=== PATIENT | male | born 1960 | race African-American/Black ===

== ENCOUNTER 2021-04-24 12:43 | Emergency (ER) | payer OTHER ==
[2021-04-24 13:33] VITALS: BP 150/94; PULSE 87; TEMP 98.2; BMI 47.2
[2021-04-24 15:52] LABS: BASO % 0.8 % (0-2.0); EOS % 2.3 % (0-4.5); HEMATOCRIT 41.2 % (35.4-49); HEMOGLOBIN 13.6 GM/dL (11.7-16.9); LYMPH % 32.2 % (8-40); MCH 27.9 pg (25.7-33.7); MEAN CELL VOLUME 84.4 fl (80-96); MEAN PLT VOLUME 8.6 fl (7.5-11.1); NEUT % 55.7 % (42.8-82.8); PLATELET COUNT 193 10^3/uL (134-434); RBC 4.88 M/mm3 (4.00-5.60); RDW 15.5 % (11.9-15.9); WHITE BLOOD COUNT 5.3 K/mm3 (4.0-10.0)
[2021-04-24 16:01] LABS: CHLORIDE 108 mmol/L (98-107); SODIUM 143 mmol/L (136-145)
[2021-04-24 16:03] LABS: CALCIUM 8.9 mg/dL (8.5-10.1)
[2021-04-24 16:04] LABS: ALBUMIN 3.6 g/dl (3.4-5.0); ANION GAP 6 MMOL/L (8-16); CO2 29 mmol/L (21-32); GLUCOSE,RANDOM 121 mg/dL (74-106)
[2021-04-24 16:07] LABS: CREATININE 0.8 mg/dL (0.55-1.3); SGOT/AST 15 U/L (15-37); SGPT/ALT 24 U/L (13-61)
[2021-04-24 16:08] LABS: BILIRUBIN,TOTAL 0.4 mg/dL (0.2-1)
[2021-04-24 16:10] LABS: ALK PHOS 71 U/L (45-117)
== END 2021-04-24 18:04 | disposition home or self-care (01) ==
LOC: JER 12:43
DX: R10.9 Unspecified abdominal pain (principal)
CPT/HCPCS: 36415; 71046-TC-FY; 74176-TC; 80053; 82550; 82962; 84484; 85025; 93005; 93010; 99285-25

== ENCOUNTER 2021-06-06 12:29 | Emergency (ER) | payer OTHER ==
[2021-06-06 12:56] VITALS: BP 139/93; PULSE 86; TEMP 97; BMI 47.0
== END 2021-06-06 15:11 | disposition home or self-care (01) ==
LOC: JERFT 12:29
DX: M79.601 Pain in right arm (principal); H11.31 Conjunctival hemorrhage, right eye
CPT/HCPCS: 93971; 99284-25

== ENCOUNTER 2021-07-06 09:47 | Inpatient (IN) | payer OTHER ==
[2021-07-06] MEDS ORDERED: ACETAMINOPHEN 500 MG TABLET (FP) PO ONE (10:41)
[2021-07-06] MEDS ORDERED: ACETAMINOPHEN 325 MG TABLET (FP) ONE (10:47)
[2021-07-06 11:17] LABS: BASO % 0.9 % (0-2.0); EOS % 3.8 % (0-4.5); HEMOGLOBIN 14.2 GM/dL (11.7-16.9); LYMPH % 33.2 % (8-40); MCH 27.8 pg (25.7-33.7); MEAN CELL VOLUME 84.3 fl (80-96); MEAN PLT VOLUME 8.6 fl (7.5-11.1); MONO % 9.3 % (3.8-10.2); NEUT % 52.8 % (42.8-82.8); PLATELET COUNT 208 10^3/uL (134-434); RBC 5.11 M/mm3 (4.00-5.60); WHITE BLOOD COUNT 5.5 K/mm3 (4.0-10.0)
[2021-07-06 11:36] LABS: CALCIUM 9.5 mg/dL (8.5-10.1)
[2021-07-06 11:37] LABS: ALBUMIN 3.7 g/dl (3.4-5.0); BLOOD UREA NITROGEN 18.9 mg/dL (7-18)
[2021-07-06 11:42] LABS: BILIRUBIN,TOTAL 0.3 mg/dL (0.2-1); TOT PROT 7.1 g/dl (6.4-8.2)
[2021-07-06] MEDS ORDERED: VANCOMYCIN 1 GM in D5W (PRE-DOCKED) 1,000 MG/250 ML IVPB ONE (12:35)
[2021-07-06] MEDS ORDERED: VANCOMYCIN 1 GRAM (PRE-DOCKED) 1,000 MG/250 ML BAG IVPB ONE (12:58)
[2021-07-06 14:08] LABS: URIC ACID 5.1 mg/dL (2.6-7.2)
[2021-07-06 15:38] VITALS: BMI 42.9
[2021-07-06] MEDS ORDERED: ALBUTEROL SO4 HFA INHALER IH PRN (17:25)
[2021-07-06] MEDS ORDERED: ACETAMINOPHEN 325 MG TABLET (FP) PO PRN (17:25)
[2021-07-06] MEDS ORDERED: CEFAZOLIN 1 GM in DEXTROSE 5%-WATER - 50 ML IVPB SCH (18:00)
[2021-07-06] MEDS ORDERED: DEXTROSE 5%-WATER - 50 ML IVPB ONE (18:22)
[2021-07-06] MEDS ORDERED: ceFAZolin SODIUM 1 GM VIAL ONE (18:22)
[2021-07-06] MEDS: CEFAZOLIN 1 GM in DEXTROSE 5%-WATER - 50 ML IVPB SCH (19:53)
[2021-07-06] MEDS: HEPARIN NA (PORCINE) 5,000 UNITS/ML 1ML VIAL SQ SCH (22:25)
[2021-07-06] MEDS: INSULIN (NOVOLOG) ASPART 100 UNITS/ML 10ML VIAL SQ SCH (22:26)
[2021-07-07] MEDS ORDERED: ceFAZolin SODIUM 1 GM VIAL ONE ×2 (00:46→08:41)
[2021-07-07] MEDS ORDERED: DEXTROSE 5%-WATER - 50 ML IVPB ONE ×2 (00:46→08:42)
[2021-07-07] MEDS: CEFAZOLIN 1 GM in DEXTROSE 5%-WATER - 50 ML IVPB SCH ×2 (01:05→10:31)
[2021-07-07] MEDS: INSULIN (NOVOLOG) ASPART 100 UNITS/ML 10ML VIAL SQ SCH ×4 (06:31→21:23)
[2021-07-07 09:57] LABS: BASO % 0.9 % (0-2.0); EOS % 5.2 % (0-4.5); HEMATOCRIT 42.1 % (35.4-49); LYMPH % 37.5 % (8-40); MCH 27.9 pg (25.7-33.7); MCHC 33.3 g/dl (32.0-35.9); MEAN CELL VOLUME 83.8 fl (80-96); MEAN PLT VOLUME 8.4 fl (7.5-11.1); MONO % 10.7 % (3.8-10.2); NEUT % 45.7 % (42.8-82.8); PLATELET COUNT 188 10^3/uL (134-434); RBC 5.02 M/mm3 (4.00-5.60); RDW 15.9 % (11.9-15.9); WHITE BLOOD COUNT 4.3 K/mm3 (4.0-10.0)
[2021-07-07 10:18] LABS: ALBUMIN 3.4 g/dl (3.4-5.0); CALCIUM 8.9 mg/dL (8.5-10.1)
[2021-07-07 10:20] LABS: BLOOD UREA NITROGEN 13.2 mg/dL (7-18)
[2021-07-07 10:23] LABS: CREATININE 0.9 mg/dL (0.55-1.3)
[2021-07-07 10:24] LABS: BILIRUBIN,TOTAL 0.5 mg/dL (0.2-1); TOT PROT 6.6 g/dl (6.4-8.2)
[2021-07-07] MEDS: LOSARTAN POTASSIUM 50 MG TABLET PO SCH (10:31)
[2021-07-07] MEDS: PANTOPRAZOLE 20 MG TABLET PO SCH (10:32)
[2021-07-07] MEDS: HEPARIN NA (PORCINE) 5,000 UNITS/ML 1ML VIAL SQ SCH ×2 (10:32→21:22)
[2021-07-07] MEDS: CLINDAMYCIN 600MG PREMIX IVPB 600 MG/50 ML BAG IVPB SCH (17:24)
[2021-07-07 21:16] LABS: URIC ACID 6.1 mg/dL (2.6-7.2)
[2021-07-08] MEDS: CLINDAMYCIN 600MG PREMIX IVPB 600 MG/50 ML BAG IVPB SCH ×3 (02:12→17:09)
[2021-07-08] MEDS: INSULIN (NOVOLOG) ASPART 100 UNITS/ML 10ML VIAL SQ SCH ×4 (06:29→21:35)
[2021-07-08] MEDS: LOSARTAN POTASSIUM 50 MG TABLET PO SCH (11:06)
[2021-07-08] MEDS: PANTOPRAZOLE 20 MG TABLET PO SCH (11:12)
[2021-07-08] MEDS: HEPARIN NA (PORCINE) 5,000 UNITS/ML 1ML VIAL SQ SCH ×2 (11:12→21:35)
[2021-07-08] MEDS ORDERED: sitaGLIPtin PHOSPHATE 50 MG TABLET PO SCH (23:42)
[2021-07-09] MEDS: CLINDAMYCIN 600MG PREMIX IVPB 600 MG/50 ML BAG IVPB SCH ×2 (01:26→09:23)
[2021-07-09] MEDS: INSULIN (NOVOLOG) ASPART 100 UNITS/ML 10ML VIAL SQ SCH ×2 (06:09→11:35)
[2021-07-09] MEDS: HEPARIN NA (PORCINE) 5,000 UNITS/ML 1ML VIAL SQ SCH (09:34)
[2021-07-09] MEDS: LOSARTAN POTASSIUM 50 MG TABLET PO SCH (09:34)
[2021-07-09] MEDS: PANTOPRAZOLE 20 MG TABLET PO SCH (09:34)
[2021-07-09 10:46] VITALS: BP 140/78; PULSE 74; TEMP 98.2
[2021-07-09 11:19] LABS: BASO % 0.9 % (0-2.0); EOS % 4.6 % (0-4.5); HEMATOCRIT 43.2 % (35.4-49); LYMPH % 38.2 % (8-40); MCH 27.4 pg (25.7-33.7); MCHC 32.4 g/dl (32.0-35.9); MEAN CELL VOLUME 84.5 fl (80-96); MEAN PLT VOLUME 8.9 fl (7.5-11.1); MONO % 11.4 % (3.8-10.2); NEUT % 44.9 % (42.8-82.8); PLATELET COUNT 211 10^3/uL (134-434); RBC 5.11 M/mm3 (4.00-5.60); RDW 15.7 % (11.9-15.9); WHITE BLOOD COUNT 3.9 K/mm3 (4.0-10.0)
[2021-07-09 11:28] LABS: ALBUMIN 3.4 g/dl (3.4-5.0); BLOOD UREA NITROGEN 15.2 mg/dL (7-18); CALCIUM 9.3 mg/dL (8.5-10.1)
[2021-07-09 11:33] LABS: BILIRUBIN,TOTAL 0.6 mg/dL (0.2-1); TOT PROT 6.8 g/dl (6.4-8.2)
== END 2021-07-09 14:46 | disposition home or self-care (01) | DRG 383 ==
LOC: JER 09:47 → JERBED 12:33 → J5S 14:58
PROVIDERS: ADMIT Family Medicine; ATTEND Family Medicine
DX: L03.113 Cellulitis of right upper limb (principal); Z68.41 Body mass index [BMI] 40.0-44.9, adult; I10 Essential (primary) hypertension; E66.9 Obesity, unspecified; L30.9 Dermatitis, unspecified; R73.03 Prediabetes
CPT/HCPCS: 36415; 70450-TC; 73110-TC-RT-FY; 73130-TC-RT-FY; 80053; 82962; 83036; 84443; 84550; 85025; 93971; 99285-25; C9803; U0003; U0005

== ENCOUNTER 2022-05-28 01:33 | Emergency (ER) | payer OTHER ==
[2022-05-28 01:36] VITALS: BP 142/87; PULSE 88; RESP 20; TEMP 98.2; BMI 46.3
[2022-05-28] MEDS ORDERED: diphenhydrAMINE HCL 25 MG CAPSULE (FP) PO ONE ×2 (02:14→02:21)
[2022-05-28] MEDS ORDERED: FAMOTIDINE 20 MG TABLET PO ONE (02:14)
[2022-05-28] MEDS ORDERED: DEXAMETHASONE SOD PHOSPHATE 10 MG/1 ML VIAL IM ONE (02:14)
[2022-05-28] MEDS ORDERED: FAMOTIDINE 20 MG TABLET ONE (02:21)
[2022-05-28] MEDS ORDERED: DEXAMETHASONE SOD PHOSPHATE 10 MG/1 ML VIAL ONE (02:21)
== END 2022-05-28 04:08 | disposition home or self-care (01) ==
LOC: JER 01:33
DX: T78.40XA Allergy, unspecified, initial encounter (principal)
CPT/HCPCS: 99283-25

== ENCOUNTER 2022-09-16 10:43 | Emergency (ER) | payer OTHER ==
[2022-09-16 10:50] VITALS: BP 134/89; PULSE 78; RESP 18; TEMP 98; BMI 48.0
[2022-09-16 12:41] LABS: VENOUS PH 7.392 (7.310-7.410)
[2022-09-16 12:42] LABS: BASO % 1.1 % (0-2.0); HEMATOCRIT 42.7 % (35.4-49); HEMOGLOBIN 14.8 GM/dL (11.7-16.9); LYMPH % 38.7 % (8-40); MCH 28.5 pg (25.7-33.7); MCHC 34.5 g/dl (32.0-35.9); MEAN CELL VOLUME 82.6 fl (80-96); MONO % 10.8 % (3.8-10.2); NEUT % 47.4 % (42.8-82.8); PLATELET COUNT 214 10^3/uL (134-434); RBC 5.17 M/mm3 (4.00-5.60); RDW 15.6 % (11.9-15.9); VENOUS BASE EXCESS -1.8 mmol/L (-2-2); VENOUS O2 SATURATION 67.1 % (70-80); VENOUS PCO2 38.3 mmHg (38-52); WHITE BLOOD COUNT 5.9 K/mm3 (4.0-10.0)
[2022-09-16 12:53] LABS: URINE APPEARANCE CLEAR; URINE BILIRUBIN NEGATIVE (NEGATIVE); URINE COLOR YELLOW; URINE GLUCOSE (UA) NEGATIVE (NEGATIVE); URINE KETONE NEGATIVE (NEGATIVE); URINE LEUK ESTERASE NEGATIVE (NEGATIVE); URINE NITRITE NEGATIVE (NEGATIVE); URINE PROTEIN NEGATIVE (NEGATIVE); URINE UROBILINOGEN 0.2 mg/dL (0.2-1.0)
[2022-09-16 13:11] LABS: POTASSIUM 4.2 mmol/L (3.5-5.1)
[2022-09-16 13:13] LABS: CALCIUM 9.4 mg/dL (8.5-10.1)
[2022-09-16 13:15] LABS: ALBUMIN 3.8 g/dl (3.4-5.0); BLOOD UREA NITROGEN 12.2 mg/dL (7-18)
[2022-09-16 13:17] LABS: CREATININE 0.9 mg/dL (0.55-1.3)
[2022-09-16 13:18] LABS: BILIRUBIN,TOTAL 0.4 mg/dL (0.2-1)
[2022-09-16 13:19] LABS: TOT PROT 7.1 g/dl (6.4-8.2)
== END 2022-09-16 14:30 | disposition home or self-care (01) ==
LOC: JERFT 10:43
DX: R11.2 Nausea with vomiting, unspecified (principal)
CPT/HCPCS: 36415; 80053; 81003; 82375; 82803; 85025; 87086; 93005; 93010; 99284-25

== ENCOUNTER 2023-04-07 10:39 | Emergency (ER) | payer OTHER ==
[2023-04-07 11:40] VITALS: BP 139/83; PULSE 79; RESP 18; TEMP 98; BMI 47.2
[2023-04-07 12:15] LABS: BASO % 1.1 % (0-2.0); EOS % 4.2 % (0-4.5); HEMATOCRIT 44.2 % (35.4-49); HEMOGLOBIN 14.7 GM/dL (11.7-16.9); LYMPH % 42.8 % (8-40); MCH 27.7 pg (25.7-33.7); MCHC 33.2 g/dl (32.0-35.9); MEAN CELL VOLUME 83.5 fl (80-96); MEAN PLT VOLUME 8.4 fl (7.5-11.1); MONO % 10.6 % (3.8-10.2); NEUT % 41.3 % (42.8-82.8); PLATELET COUNT 220 10^3/uL (134-434); RDW 15.6 % (11.9-15.9); WHITE BLOOD COUNT 4.2 K/mm3 (4.0-10.0)
[2023-04-07 12:21] LABS: INR 1.15 (0.83-1.09); PROTHROMBIN TIME (PATIENT) 13.3 SEC (9.7-13.0)
[2023-04-07 12:23] LABS: ACTIVATED PTT 37.5 SECONDS (25.2-36.5)
[2023-04-07 12:38] LABS: POTASSIUM 4.1 mmol/L (3.5-5.1)
[2023-04-07 12:41] LABS: ALBUMIN 3.7 g/dl (3.4-5.0); BLOOD UREA NITROGEN 11.4 mg/dL (7-18)
[2023-04-07 12:42] LABS: MAGNESIUM 1.6 mg/dL (1.8-2.4)
[2023-04-07 12:44] LABS: CREATININE 0.8 mg/dL (0.55-1.3); PHOSPHOROUS 2.5 mg/dL (2.5-4.9)
[2023-04-07 12:46] LABS: BILIRUBIN,TOTAL 0.4 mg/dL (0.2-1); TOT PROT 7.2 g/dl (6.4-8.2)
[2023-04-07] MEDS ORDERED: MAGNESIUM SULF 50% (8.12 MEQ/2 ML-1 GM VIAL) IVPB ONE (12:52)
[2023-04-08] MEDS ORDERED: MAGNESIUM CL 64 MG TABLET.SA PO ONE (12:55)
== END 2023-04-07 14:48 | disposition left against medical advice (07) ==
LOC: JER 10:39
DX: M79.642 Pain in left hand (principal); R00.2 Palpitations; H02.59 Other disorders affecting eyelid function; E83.42 Hypomagnesemia; R94.6 Abnormal results of thyroid function studies; R20.2 Paresthesia of skin
CPT/HCPCS: 36415; 71046-TC-FY; 80053; 82550; 83735; 84100; 84443; 84484; 85025; 85610; 85730; 93005; 93010; 99285-25

== ENCOUNTER 2023-06-17 17:27 | Emergency (ER) | payer OTHER ==
[2023-06-17 17:45] VITALS: BP 130/79; PULSE 80; RESP 18; BMI 44.9
== END 2023-06-17 22:28 | disposition home or self-care (01) ==
LOC: JER 17:27
DX: M47.816 Spondylosis without myelopathy or radiculopathy, lumbar region (principal)
CPT/HCPCS: 72131-TC; 93005; 93010; 99284-25

== ENCOUNTER 2024-12-10 10:42 | Emergency (ER) | payer OTHER ==
[2024-12-10 10:52] VITALS: BP 143/80; PULSE 94; RESP 14; TEMP 98; BMI 46.1
[2024-12-10] MEDS: BACITRACIN ZINC 15 GM TUBE TOPICAL OINTMENT TP ONE (11:45)
== END 2024-12-10 11:56 | disposition home or self-care (01) ==
LOC: JERFT 10:42
DX: H66.91 Otitis media, unspecified, right ear (principal); H92.01 Otalgia, right ear; L30.9 Dermatitis, unspecified; S60.412A Abrasion of right middle finger, initial encounter; X58.XXXA Exposure to other specified factors, initial encounter
CPT/HCPCS: 99283-25